=== PATIENT | female | born 1985 | race Caucasian/White ===

== ENCOUNTER 2020-07-16 19:46 | Emergency (ER) | payer MEDICAID | END 2020-07-16 20:25 | disposition left against medical advice (07) | LOC: EDBD 19:46 → ER 19:59 | DX: M54.2 Cervicalgia (principal); R07.9 Chest pain, unspecified; Z53.21 Procedure and treatment not carried out due to patient leaving prior to being seen by health care provider; V89.2XXA Person injured in unspecified motor-vehicle accident, traffic, initial encounter; Y93.89 Activity, other specified; Y92.89 Other specified places as the place of occurrence of the external cause; Y99.8 Other external cause status ==